=== PATIENT | female | born 1990 | race Caucasian/White ===

== ENCOUNTER → 2020-11-22 | Outpatient (CLI) | payer BC ==
--- NOTE | 2020-11-22 08:00 | MR ---
EXAMINATION TYPE: MR lumbar spine wo con DATE OF EXAM: 11/22/2020 COMPARISON: None HISTORY: 29-year-old female Low back pain TECHNIQUE: Multiplanar, multisequence images of the lumbar spine were acquired. FINDINGS: Vertebral body heights are preserved and alignment is maintained. Mild facet arthropathy lower lumbar spine. Mild diminished marrow signal intensity compatible with red marrow probably due to patient's relative ly young age. No suspicious bone marrow replacement. Scattered fatty matrix hemangiomas are present. Conus medullaris is normal. No focal disc herniation or significant spinal canal stenosis. No significant neuroforaminal stenosis seen on either side. No prevertebral or paravertebral soft tissue abnormality. Incidental 1.3 cm sacral Tarlov cyst on the left at the S2-S3 level. IMPRESSION: 1. Mild facet arthropathy lower lumbar spine. 2. No focal disc herniation or significant spinal canal stenosis. No significant neural foraminal jae nosis. 3. Red marrow hyperplasia probably due to patient's relatively young age. It can also be seen with an emia, obesity, and smoking. Clinically correlate. 4. Incidental 1.3 cm left-sided sacral Tarlov cyst.
== END | disposition home or self-care (01) ==
LOC: RADMRIMAIN 06:24
PROVIDERS: ATTEND Internal Medicine
DX: M47.816 Spondylosis without myelopathy or radiculopathy, lumbar region (principal); D75.89 Other specified diseases of blood and blood-forming organs
CPT/HCPCS: 72148